=== PATIENT | male | born 1950 | race Caucasian/White ===

== ENCOUNTER 2018-02-07 09:10 | Emergency (ER) | payer MEDICARE, OTHER ==
[~2018-02-07] VITALS: Ht 172.7 cm; Wt 100.0 kg
[~2018-02-07 09:10] MED LIST: ACET-1008 GT; ATROPINE 1% SL; BACL10TA2 PEG; COL100C GT; DICL100G15 TOP; DULR RC; ESCI10TA GT; GABA300C GT; GLUC1KIT IM; HYDR-565 PO; LACT10SO7 PO; LANTUS SQ; LORA0.5T GT; MAGN400O6 PEG; MELA3TAB GT; METH113C20; NA P133E4 RC; NOVRI SQ; POLY17PO10 PO; PRAV10TA39 GT; TIOT18CA7 IH
[2018-02-07] MEDS ORDERED: MIDAZolam 5mg/5ml vial ONE (12:00)
[2018-02-07] MEDS ORDERED: fentaNYL/PF 50MCG/1 ML 2ML syringe ONE (12:00)
[2018-02-07 12:25] VITALS: BP 123/69
[2018-02-07] MEDS ORDERED: simethicone 40mg/0.6ml oral drops 30ml MC ONE (12:35)
[2018-02-07] MEDS ORDERED: fentaNYL/PF 50MCG/1 ML 2ML syringe IV PRN ×2 (12:35→12:45)
[2018-02-07] MEDS ORDERED: normal saline 1000ml 1,000 ML IV SCH (12:35)
[2018-02-07] MEDS ORDERED: LIDOcaine Viscous 15ml cup PO ONE (12:35)
[2018-02-07] MEDS ORDERED: MIDAZolam 5mg/5ml vial IV PRN (12:35)
[2018-02-07 13:01] VITALS: BP 132/82
[2018-02-07 13:11] VITALS: BP 136/81
[2018-02-07 13:21] VITALS: BP 119/92
[2018-02-07 13:31] VITALS: BP 135/79
== END 2018-02-07 15:10 | disposition home or self-care (01) ==
LOC: ER 09:10
DX: T18.2XXA Foreign body in stomach, initial encounter (principal); K94.23 Gastrostomy malfunction; G89.29 Other chronic pain; E11.9 Type 2 diabetes mellitus without complications; I10 Essential (primary) hypertension; Z86.73 Personal history of transient ischemic attack (TIA), and cerebral infarction without residual deficits; Z90.49 Acquired absence of other specified parts of digestive tract; F15.10 Other stimulant abuse, uncomplicated; Z79.4 Long term (current) use of insulin; Z88.8 Allergy status to other drugs, medicaments and biological substances; Z88.5 Allergy status to narcotic agent
CPT/HCPCS: 43247; 43760; 99284; A6449; B4088; J2250; J3010; J7030; A4620; G0500